=== PATIENT | female | born 1940 | race Caucasian/White ===

== ENCOUNTER 2022-09-11 05:37 | Emergency (ER) | payer OTHER, MEDICARE ==
[2022-09-11 05:58] VITALS: RESP 18; BMI 20.5
[2022-09-11 07:15] LABS: BASO % 0.2 % (0-2.0); HEMATOCRIT 36.7 % (32.4-45.2); HEMOGLOBIN 11.9 GM/dL (10.7-15.3); MCH 29.2 pg (25.7-33.7); MCHC 32.4 g/dl (32.0-36.0); MEAN CELL VOLUME 90.3 fl (80-96); MEAN PLT VOLUME 9.6 fl (7.5-11.1); MONO % 8.2 % (3.8-10.2); NEUT % 86.6 % (42.8-82.8); PLATELET COUNT 197 10^3/uL (134-434); RBC 4.06 M/mm3 (3.60-5.2); RDW 13.6 % (11.6-15.6); WHITE BLOOD COUNT 13.9 K/mm3 (4.0-10.0)
[2022-09-11] MEDS ORDERED: DIPHTH,PERTUSS(ACELL),TET 0.5 ML DISP.SYRIN IM ONE ×2 (07:27→07:39)
[2022-09-11 07:38] LABS: POTASSIUM 4.2 mmol/L (3.5-5.1)
[2022-09-11 07:40] LABS: CALCIUM 9.1 mg/dL (8.5-10.1)
[2022-09-11 07:41] LABS: ALBUMIN 3.6 g/dl (3.4-5.0)
[2022-09-11 07:45] LABS: BILIRUBIN,TOTAL 1.6 mg/dL (0.2-1); TOT PROT 6.8 g/dl (6.4-8.2)
[2022-09-11 09:42] VITALS: BP 137/55; PULSE 75; TEMP 98
== END 2022-09-11 09:25 | disposition short-term general hospital (02) ==
LOC: JER 05:37
PROC: 3E0234Z Introduction of Serum, Toxoid and Vaccine into Muscle, Percutaneous Approach (ICD-10-PCS; principal; 2022-09-11)
DX: S01.81XA Laceration without foreign body of other part of head, initial encounter (principal); R07.81 Pleurodynia; W01.198A Fall on same level from slipping, tripping and stumbling with subsequent striking against other object, initial encounter; Y92.002 Bathroom of unspecified non-institutional (private) residence as the place of occurrence of the external cause
CPT/HCPCS: 36415; 70450-TC; 71046-TC-FY; 72125-TC; 80053; 85025; 87635; 90471; 90715; 93005; 93010; 99285-25